=== PATIENT | male | born 1980 | race Caucasian/White ===

== ENCOUNTER 2024-10-21 15:55 | Emergency (ER) | payer OTHER ==
[~2024-10-21] VITALS: Ht 170.2 cm; Wt 74.0 kg
[2024-10-21 21:00] VITALS: BP 135/76; PULSE 65; RESP 16; TEMP 97.9; O2SAT 98
[2024-10-21] MEDS: TraMADol HCL 50 MG TABLET PO ONE (21:52)
== END 2024-10-22 04:37 ==
LOC: EMS 15:55
DX: S20.211A Contusion of right front wall of thorax, initial encounter (principal); Z91.030 Bee allergy status; Y04.8XXA Assault by other bodily force, initial encounter; Y93.89 Activity, other specified; Y92.89 Other specified places as the place of occurrence of the external cause; Y99.8 Other external cause status
CPT/HCPCS: 71100; 99283